=== PATIENT | female | born 1995 | race Caucasian/White ===

== ENCOUNTER 2017-01-06 10:25 | Emergency (ER) | payer BC ==
[~2017-01-06] VITALS: Ht 165.1 cm; Wt 62.1 kg
[~2017-01-06 10:25] MED LIST: NUVARING VAGIN1 EACH VG
[2017-01-06] MEDS ORDERED: NUVARING VAGIN1 EACH VG (10:48)
[2017-01-06 11:02] LABS: HEMATOCRIT 38.4 % (36.0-46.0); MCH 32.4 PG (29.0-34.0); MCHC 34.9 G/DL (30.0-36.0); MCV 92.8 FL (83-99); MEAN PLAT.VOLUME 9.4 uM^3 (9.5-12.4); PLATELET COUNT 245 K/uL (156-360); RBC DIS.WIDTH-CV 12.3 % (11.8-14.6); RBC DIS.WIDTH-SD 40.6 % (39-53); RED BLOOD COUNT 4.14 M/uL (3.80-5.20); WHITE BLOOD COUNT 4.6 K/uL (4.1-10.2)
[2017-01-06 11:16] LABS: CHLORIDE 105 mEq/L (99-109); POTASSIUM 3.7 mEq/L (3.7-5.4); SODIUM 140 mEq/L (136-147)
[2017-01-06 11:18] LABS: GLUCOSE 82 mg/dL (70-99)
[2017-01-06 11:19] LABS: ANION GAP 12 MEQ/L (2-14)
[2017-01-06 11:20] LABS: TOTAL BILIRUBIN 0.4 mg/dL (0.0-1.0)
[2017-01-06 11:22] LABS: ALKALINE PHOSPHATASE 51 IU/L (3-129); GFR ESTIMATE (CALCULATED) > 59 mL/min/
[2017-01-06 11:23] LABS: UREA NITROGEN (BUN) 10 mg/dL (9-23)
[2017-01-06 11:34] LABS: QUANTITATIVE HCG < 4.0 MIU/ML
[2017-01-06 12:52] VITALS: BP 132/95
== END 2017-01-06 12:54 | disposition home or self-care (01) ==
LOC: EME 10:25
PROVIDERS: Emergency Medicine
DX: N93.8 Other specified abnormal uterine and vaginal bleeding (principal); F17.200 Nicotine dependence, unspecified, uncomplicated
CPT/HCPCS: 80053; 84702; 85027; 99281; 99284